=== PATIENT | female | born 1970 | race Hispanic/Latino ===

== ENCOUNTER → 2016-03-18 | Outpatient (CLI) | payer OTHER ==
--- NOTE | 2016-03-24 15:01 | REPMRS ---
Patient History The patient states she has not had a clinical breast exam in over a year. Patient had first child at age 36. No known family history of cancer. Calling for out of state priors Digital Mammo Screening Bilat: March 18, 2016 - Exam #: [id number] Bilateral CC and MLO view(s) were taken. Technologist: Mamta Taylor, Technologist Prior study comparison: June 20, 2013, digital bilateral screening mammo, performed at [facility]. FINDINGS: The breast tissue is heterogeneously dense. This may lower the sensitivity of mammography. There is a moderate amount of heterogeneously dense fibroglandular tissue which is fairly symmetric. There is no interval development of dominant mass, architectural distortion, or clustered microcalcification typical of malignancy. There has been no change in the appearance of the mammogram from the prior studies. ASSESSMENT: BI-RADS/ACR category 1 mammogram. Negative. Recommendation Routine screening mammogram of both breasts in 1 year (for women over age 40). This mammogram was interpreted with the aid of an FDA-approved computer-aided dectection system. Electronically Signed By: Nitin Aguilar MD 03/24/16 [id number]
== END ==
LOC: M RAD 13:12
PROVIDERS: ATTEND Internal Medicine
DX: Z12.31 Encounter for screening mammogram for malignant neoplasm of breast (principal)